=== PATIENT | female | born 1945 | race Caucasian/White ===

== ENCOUNTER 2018-01-23 05:04 | Inpatient (IN) ==
[2018-01-23] MEDS ORDERED: Metoprolol Tartrate 25 MG Tablet PO ONE (05:42)
[2018-01-23] MEDS ORDERED: Chlorhexidine Gluconate 2% 1 Pack (2 Cloths) TOPICAL ONE (05:42)
[2018-01-23] MEDS ORDERED: Chlorhexidine 4% Topical 120 APPLIC/120 ML Bottle TOPICAL SCH (05:45)
[2018-01-23] MEDS ORDERED: ceFAZolin 2 GM Premix Inj 2 GM/50 ML PIGGYBACK IV.SIG SCH (06:00)
[2018-01-23] MEDS ORDERED: Sodium Chlor 0.9% Inj 500 ML IV.SIG SCH (06:00)
[2018-01-23] MEDS ORDERED: Tranexamic Acid Inj 840 MG in Sodium Chlor 0.9% Inj 100 ML IV.SIG SCH ×2 (06:00→08:35)
[2018-01-23] MEDS ORDERED: Propofol Inj 500 MG/50 ML Vial ONE (06:20)
[2018-01-23] MEDS ORDERED: Sodium Chlor 0.9% Inj 40 ML, Bupivacaine Liposo PF 1.3% Inj 20 ML P-ARTICULR SCH ×2 (07:00)
[2018-01-23] MEDS ORDERED: Bisacodyl 10 MG Supp RECTAL PRN (07:04)
[2018-01-23] MEDS ORDERED: Aluminum/Magnesium/Simethacone Susp 30 ML UDC PO PRN (07:04)
[2018-01-23] MEDS ORDERED: Morphine Inj 4 MG/ML Vial IV.PUSH PRN (07:04)
[2018-01-23] MEDS ORDERED: Tranexamic Acid Inj 0 MG in Sodium Chlor 0.9% Inj 100 ML IV.SIG ONE (07:04)
[2018-01-23] MEDS ORDERED: Acetaminophen 325 MG Tablet PO PRN (07:04)
[2018-01-23] MEDS ORDERED: Post-op Orders (for Pharmacy) OTHER STA (07:04)
[2018-01-23] MEDS ORDERED: Pantoprazole Sodium 20 MG DR Tablet PO PRN (08:30)
[2018-01-23] MEDS ORDERED: [UNRECOGNIZED DRUG - OTHER] PO SCH (09:00)
[2018-01-23] MEDS ORDERED: Non-Formulary Drug (Omega 3-Dha-Epa-Fish Oil [Fish Oil] 1,200 MG) PO SCH (09:00)
--- NOTE | 2018-01-23 09:35 | P.OP ---
- Preoperative Diagnosis (1) Primary osteoarthritis of right hip - Postoperative Diagnosis (1) Primary osteoarthritis of right hip Date of procedure: 01/23/18 Procedure: Right total hip arthroplasty using Nabeel prosthesis Anesthesia: GETA, local (Exparel) Surgeon: Popeye Jung MD Records Analysis Manager: ESTIVEN Prather Estimated blood loss (mL): 400 Pathology: none sent Operation and Findings: Indications and Findings: This 72-year-old woman has had long-standing arthritis in her right hip which has been nonresponsive to conservative, nonoperative care as detailed in the history and physical including anti- inflammatory agents, analgesics, intra-articular corticosteroids, physical therapy and ambulatory aids. This has been progressively worsening over the past 10 months. She has difficulty entering and exiting the vehicle, ascending and descending stairs and standing from a seated position. Physical findings showed limited range of motion in the right hip with tenderness on motion. X- rays showed severe osteoarthritis with loss of articular cartilage to bone-on- bone, subchondral sclerosis and osteophytes. Operative findings: There was severe osteoarthritis in the right hip with loss of articular cartilage to [id number], subchondral sclerosis and osteophytes. Implants: The acetabular component was a 48 mm external diameter Trident 2 with a 36 mm inner diameter 0 degree X3 polyethylene liner. The femoral component was an Accolade 2 size 1 x 132 degrees. The femoral head was 36 mm outer diameter Biolox Delta with 2.5 mm offset. The patient was brought to the clean air operating suite and a general endotracheal anesthetic was administered after an attempt at a spinal. The patient was positioned into a lateral position with the operative hip up on a Biomet lateral positioner. The hip and lower extremity were prepped with alcohol, Hibiclens and ChloraPrep and draped in the usual manner with the hip draped free. Patient received prophylactic antibiotics preoperatively. The patient also received tranexamic acid preoperatively. An appropriate timeout procedure was carried out. An incision was made from the midportion of the greater trochanter proximally and posteriorly paralleling the fibers of the gluteus basilia. The incision was deepened through subcutaneous tissues down to the fascia ron and gluteus fascia. The gluteus fascia was then split longitudinally in line with its fibers up to the upper portion of the fascia ron. With wound towels in place, the Charnley retractor was inserted. The sciatic nerve was identified and protected throughout the procedure. Dissection was then carried down to the interval between the gluteus minimus and the piriformis. A retractor was inserted. The piriformis and obturator conjoined tendon was released from the greater trochanter and reflected off the capsule. A capsulotomy was made longitudinally along the femoral neck to the base of the femoral neck and then curved distally along the posterior aspect of the greater trochanter. The hip was internally rotated. Further release of the external rotators was carried out exposing the hip. The hip was dislocated. The femoral neck was transected at the appropriate level using the oscillating saw placement of appropriate retractors. The femoral head was removed. Preparation of the femur was initiated with a box osteotome followed by a curet to identify the medullary canal. Broaching was then initiated with the size 0 broach and went in 1 size increments up to size 1. The broach handle was removed. The femoral neck was then trimmed with a calcar planar. Attention was then directed to the acetabulum. Soft tissues were debrided from the acetabulum. Retractors were placed about the acetabulum. Reaming was then initiated with the 43 millimeter reamer and went in 1-2 mm increments up to the 48 millimeter diameter reamer. A trial reduction with the 48 millimeter trial prosthesis was carried out. When this was deemed to be appropriate, the trial prosthesis was removed. The acetabulum was irrigated and cleaned. The actual prosthesis as noted above was impacted into place and seated appropriately. Drill holes were made and sounded. Appropriate sized screws were inserted to stabilize the acetabulum further. The liner as noted above was inserted into the acetabular shell and impacted into place. Osteophytes were trimmed from the acetabulum. Local anesthetic was administered throughout the area of the acetabulum and anterior aspect of the femur. The trial neck was placed on the broach for the above-noted prosthesis. The femoral head trial was placed onto the femoral neck . A trial reduction was carried out. Adjustment was made as needed. The stability, leg length and motion were excellent. There was no pistoning. The trial prosthesis was removed. The broach was removed. The femoral component was impacted into the medullary canal of the femur after irrigation and suctioning. When this was appropriately seated a trial reduction was again carried out with the trial prosthesis. There was no pistoning. The leg length was appropriate. The stability and motion were excellent. The trial prosthesis was then removed. After cleaning and drying the trunion of the femoral component, the above-noted femoral head was impacted onto the trunnion. The hip was reduced. The stability and mobility were again checked along with leg lengths as noted above. The hip was positioned appropriately and closure commenced after the remainder of the local anesthetic was injected throughout the hip. The external rotators and capsule were repaired with #1 Vicryl interrupted transosseous sutures with a Krakw technique to reattach the external rotators and capsule to the posterior aspect of the greater trochanter. The capsule itself on the superior aspect was closed with #1 Vicryl interrupted [id number] sutures. The sciatic nerve was inspected. The fascia ron and gluteus fascia were repaired with #1 Vicryl interrupted [id number] sutures. The subcutaneous tissues were closed with 2-0 Vicryl interrupted simple sutures with buried knots. The skin was closed with a continuous subcuticular closure of 4-0 Monocryl. The wound was then approximated with Dermabond Prineo. A silver impregnated dressing was applied to the hip. A knee immobilizer was applied to the leg. The patient was transferred from the operating room to the recovery room in satisfactory condition having tolerated the procedure well. Counts are correct. Specimens: None. Estimated blood loss: 400
--- NOTE | 2018-01-23 09:37 | P.DCO ---
- Physical Therapy Physical Therapy: Gait training Hip: Total hip, Protocol: Right, Posterior hip precautions, Progress to weight bearing Canvas Knee Splint: When in bed with 2 pillows between thighs (For 2 months) Right Lower Extremity Weight Bearing: Weight bearing as tolerated Right Lower Extremity Range of Motion: Active ROM - Nursing Nursing: Dressing changes Dressing changes: Daily dressing change, Coverderm/Primapore Additional instructions: Do not remove Dermabond Prineo (the tape that is directly on the wound). Leave the Optifoam dressing in place for 7 days. After this, daily dressing changes will be done taking care to avoid injuring or removing the Dermabond Prineo. - Certification Need for Home Health services: I have seen patient Caterina Parrish on 01/23/18. My clinical findings support the need for the requested home health care services because: Need for Home Health Services: Deconditioned with increased weakness, Limited ability to care for self, High risk of falls Homebound Certification: I certify that my clinical findings support that this patient is homebound because: Homebound Certification: Post-op weakness, Unsteady gait/balance, Unsafe to leave home unassisted
[2018-01-23] MEDS ORDERED: fentaNYL Citrate Inj 100 MCG/2 ML Ampul ONE (09:57)
[2018-01-23] MEDS ORDERED: *morphine SULFATE 4 MG/ML PERIprocedure ONLY ONE (10:02)
[2018-01-23] MEDS ORDERED: *Meperidine Inj 25 MG/ML Vial PERIprocedural Use ONLY ONE (10:15)
--- NOTE | 2018-01-23 11:11 | XR ---
EXAM DATE: 01/23/2018 11:08 AM EST AGE/SEX: 72 years / Female INDICATIONS: Post op right hip. CLINICAL DATA: This is the patient's initial encounter. Patient reports that signs and symptoms have been present for 1 day and indicates a pain score of Nonresponsive. MEDICAL/SURGICAL HISTORY: None. None. COMPARISON: POI, XR HIP AP AND LAT, RIGHT, 04/20/2017. . FINDINGS: Status post placement of a right hip prosthesis. The bony structures are grossly intact. There is goo d alignment and position of the right hip prosthesis. CONCLUSION: Good alignment and position on this postoperative study. Electronically signed by: Shay Romo MD 01/23/2018 11:10 AM EST
[2018-01-23] MEDS ORDERED: VITAMIN B COMPLEX PO SCH (12:00)
[2018-01-23] MEDS: Ketorolac Inj 30 MG/ML (IVP) Vial IV.PUSH SCH ×3 (12:13→22:01)
[2018-01-23] MEDS ORDERED: Dimethicone/Oxybenzone-Padimate Lip Balm 4.25 GM Tube TOPICAL ONE (12:18)
[2018-01-23] MEDS: Multivitamin/Minerals Therapeutic Tablet PO SCH (12:23)
[2018-01-23] MEDS: Ascorbic Acid 500 MG Tablet PO SCH (12:23)
[2018-01-23] MEDS: Senna/Docusate Sodium 8.6/50 MG Tablet PO SCH ×2 (13:51→21:23)
[2018-01-23] MEDS: ceFAZolin 1 GM Premix Inj 1 GM/50 ML IV.SIG SCH ×2 (13:58→18:50)
--- NOTE | 2018-01-23 14:50 | P.CONIM ---
History of Present Illness Service: [facility] Consult date: 01/23/18 Reason for Consult: medical management GERD, OA Primary Care Provider: Aissatou Eldridge Chief Complaint: s/p elective right total hip arthroplasty History of Present Illness: Patient is a very pleasant year old female with a past medical history significant for osteoarthritis and GERD. Patient has a long standing history of arthritis in her right hip that has not responded to conservative, non operative care. She presented to the hospital today for an elective right total hip arthroplasty. Patient has had progressively worsening right hip pain over the past months that eventually became functionally disabling despite conservative treatment. Patient was seen post operatively in the PACU by the hospitalist team for management of patients chronic conditions including chronic pain secondary to osteoarthritis and GERD. Patient was seen while resting on a stretcher. She reports no pain to right hip while at rest but states she used the bedpan earlier and experienced moderate to severe pain with movement. Patient's right lower extremity is noted to be in an immobilizer. She is able to wiggle her toes and the sensation is intact. Patient denies nausea or vomiting. She is hemodynamically stable. Her respirations are non labored. She denies heartburn at present time. No reports of chest pain or shortness of breath. No acute distress was noted. Patients lab work completed 01/09/18 was reviewed at bedside and noted to be unremarkable. The hospitalist team will follow along for continued management of patients chronic medical conditions. Review of Systems ROS Unobtainable: other (except as documented all other systems reviewed and negative) FOR[facility]LY [facility] Social History Social History Substance History: No History of Abuse Second Hand Smoke Exposure: No Smoking Status: Never smoker How Often Do You Have a Drink Containing Alcohol: 2 to 4 times a month Recent Travel in [facility] within the Last 8 Weeks: No Recent Out of Country Travel within the Last 8 Weeks: No Medications and Allergies Allergies Allergy/AdvReac Type Severity Reaction Status Date / Time butalbital Allergy Mild NAUSEA, Verified 01/09/18 09:02 HEADACHE caffeine Allergy Mild NAUSEA, Verified 01/09/18 09:02 HEADACHE clarithromycin Allergy Mild NAUSEA, Verified 01/09/18 09:03 HEADACHE diclofenac Allergy Mild NAUSEA, Verified 01/09/18 09:02 HEADACHE rofecoxib [From Vioxx] Allergy Mild Headache Verified 01/09/18 09:02 Sulfa (Sulfonamide Allergy Mild NAUSEA, Verified 01/09/18 09:02 Antibiotics) HEADACHE sulfamethoxazole Allergy Mild NAUSEA, Verified 01/09/18 09:03 HEADACHE trimethoprim Allergy Mild NAUSEA, Verified 01/09/18 09:03 HEADACHE bacitracin AdvReac Headache Verified 01/23/18 05:55 Home Medications Medication Instructions Recorded Confirmed Type ascorbic acid (vitamin C) [Vitamin 2,000 mg PO DAILY 01/09/18 01/23/18 History C] cholecalciferol (vitamin D3) 5,000 unit PO DAILY 01/09/18 01/23/18 History [Vitamin D3] conjugated estrogens [Premarin] 0.3 mg PO DAILY 01/09/18 01/23/18 History cyanocobalamin (vitamin B-12) 1,000 mcg PO DAILY 01/09/18 01/23/18 History [Vitamin B-12] flaxseed oil-omega 3,6,9 1 cap PO DAILY 01/09/18 01/23/18 History zczuvyoerqiz-sew-qaoc-FA-vit K 1 tab PO DAILY 01/09/18 01/23/18 History [Adults Multivitamin] nabumetone 500 mg PO BID 01/09/18 01/23/18 History omega 2-aby-xgu-fish oil [Fish Oil] 1,200 mg PO DAILY 01/09/18 01/23/18 History omeprazole 20 mg PO DAILY PRN 01/09/18 01/23/18 History vitamin B complex 1 tab PO DAILY 01/09/18 01/23/18 History vitamin E 800 unit PO DAILY 01/09/18 01/23/18 History Active Medications: Active Medications Acetaminophen (Tylenol) 650 mg PO Q6H PRN PRN Reason: Pain Less Than 3 On Scale Hydrocodone Bitart/Acetaminophen ([place] 7.5/325) 1 tab PO Q4H PRN PRN Reason: PAIN SCALE 4 TO 6 MODERATE Last Admin: 01/23/18 14:05 Dose: 1 tab Hydrocodone Bitart/Acetaminophen ([place] 7.5/325) 2 tab PO Q6H PRN PRN Reason: PAIN SCALE 7 TO 10 SEVERE Al Hydrox/Mg Hydrox/Simethicone (Mag-Al Plus Susp Liq) 30 ml PO Q6H PRN PRN Reason: INDIGESTION Al Hydroxide/Mg Hydroxide (Milk Of Magnesia Liq) 30 ml PO BID PRN PRN Reason: Mild Constipation Ascorbic Acid (Vitamin C) 2,000 mg PO DAILY [facility] Last Admin: 01/23/18 12:23 Dose: 2,000 mg Aspirin (Aspirin Chew) 81 mg PO BID [facility] Last Admin: 01/23/18 12:14 Dose: 81 mg Bisacodyl (Dulcolax Supp) 10 mg RECTAL DAILY PRN PRN Reason: SEVERE CONSITIPATION Chlorhexidine Gluconate (Hibiclens 4% Topical) 1 applicatio TOPICAL ONCE [facility] Stop: 01/27/18 05:44 Last Admin: 01/23/18 05:30 Dose: 1 applicatio Sodium Chloride 40 ml/ (Bupivacaine Liposome 20 ml) 0 ml P-ARTICULR ONCE [facility] Stop: 01/23/18 15:00 Last Admin: 01/23/18 07:56 Dose: 60 bag Cyanocobalamin (Vitamin B12) 1,000 mcg PO DAILY [facility] Last Admin: 01/23/18 13:52 Dose: 1,000 mcg Diphenhydramine HCl (Benadryl) 25 mg PO Q6H PRN PRN Reason: ITCHING Estrogens Conjugated (Premarin) 0.3 mg PO DAILY [facility] Last Admin: 01/23/18 12:23 Dose: 0.3 mg Cefazolin Sodium/Dextrose (Ancef 2 Gm Premix Inj) 2 gm in 50 mls @ 100 mls/hr IV.SIG COATER SLATE [facility] Stop: 01/27/18 05:59 Last Infusion: 01/23/18 07:56 Dose: Infused Tranexamic Acid 840 mg/ Sodium (Chloride) 108.4 mls @ 200 mls/hr IV.SIG ONCE [facility] Stop: 01/23/18 15:00 Last Admin: 01/23/18 10:18 Dose: 200 mls/hr Sodium Chloride (Ns Inj) 500 mls @ 30 mls/hr IV.SIG .Q10H [facility] Last Admin: 01/23/18 08:07 Dose: Not Given Lactated Ringer's (Lr 1000 Ml Inj) 1,000 mls @ 30 mls/hr IV.SIG .Q24H [facility] Stop: 01/24/18 05:44 Last Admin: 01/23/18 05:45 Dose: 30 mls/hr Cefazolin Sodium/Dextrose (Ancef 1 Gm Premix Inj) 1 gm in 50 mls @ 100 mls/hr IV.SIG Q6H [facility] Stop: 01/24/18 01:29 Last Admin: 01/23/18 13:58 Dose: 100 mls/hr Lactated Ringer's (Lr 1000 Ml Inj) 1,000 mls @ 80 mls/hr IV.CONT .[id number] [facility] Last Admin: 01/23/18 10:18 Dose: 80 mls/hr Ketorolac Tromethamine (Toradol Inj) 15 mg IV.PUSH Q6H [facility] Stop: 01/25/18 05:01 Last Admin: 01/23/18 12:13 Dose: 15 mg Lactulose (Lactulose Liq) 30 ml PO DAILY PRN PRN Reason: SEVERE CONSITIPATION Miscellaneous Information (Misc Nursing Information) 0 each OTHER UNSCH PRN PRN Reason: SEE LABEL COMMENTS Stop: 01/24/18 09:59 Morphine Sulfate (Morphine Inj) 2 mg IV.PUSH Q3H PRN PRN Reason: BREAKTHROUGH PAIN Multivitamins/Minerals (Theragran-M) 1 tab PO DAILY [facility] Last Admin: 01/23/18 12:23 Dose: 1 tab Ondansetron HCl (Zofran Odt) 4 mg PO Q6H PRN PRN Reason: NAUSEA OR VOMITING Pantoprazole Sodium (Protonix) 20 mg PO DAILY PRN PRN Reason: GERD;HEARTBURN Patient Own Medication: Vitamin B Complex Tablet 0 each PO DAILY [facility] Senna/Docusate Sodium (Jacqueline-Colace) 1 tab PO BID [facility] Last Admin: 01/23/18 13:51 Dose: Not Given Sennosides (Senokot) 17.2 mg PO BID PRN PRN Reason: Moderate Constipation Sodium Chloride (Ns Flush) 2 ml IV.FLUSH PRN PRN PRN Reason: FLUSH AFTER USING IV ACCESS Sodium Chloride (Ns Flush) 2 ml IV.FLUSH BID [facility] Last Admin: 01/23/18 13:51 Dose: Not Given Vitamin D (Vitamin D3) 5,000 unit PO DAILY [facility] Last Admin: 01/23/18 12:24 Dose: 5,000 unit Vitamin E (Vitamin E) 800 unit PO DAILY [facility] Last Admin: 01/23/18 12:24 Dose: 800 unit Zolpidem Tartrate (Ambien) 5 mg PO HS PRN PRN Reason: INSOMNIA Physical Exam Vital signs: Last Vital Signs Temp 97.3 F L 01/23/18 12:00 Pulse 76 01/23/18 13:30 Resp 15 01/23/18 13:30 BP 115/77 01/23/18 13:30 Pulse Ox 99 01/23/18 12:30 Intake & Output 01/21/18 01/22/18 01/23/18 01/24/18 06:59 06:59 06:59 06:59 Intake Total 1000.4 / 1000.4 Output Total 400 / 400 Balance 600.4 / 600.4 Weight 84.1 kg Constitutional no acute distress and cooperative Routine HEENT Exam Head: Present normocephalic and atraumatic Eye: Present EOMI, PERRL and normal accommodation ENT: Present mucous membranes moist Routine Neck Exam Present supple and full ROM; Absent JVD Routine Chest/Breast/Axilla Exam Chest wall: Absent tenderness Routine Respiratory Exam Present CTA bilaterally; Absent accessory muscle use and wheezes Routine Cardiovascular Exam Present RRR, S1 and S2; Absent murmur Routine Abdominal Exam Present soft; Absent tenderness and distended Routine Extremities Exam Present pulses intact; Absent cyanosis and edema Detailed Lower Extremity Exam Hip: right: wound hip (covered with dressing) and right: decreased ROM (s/p right hip arthroplasty) Routine Skin Exam Present intact Routine Neurological Exam Present alert, oriented X3 and CN II-XII intact Results Labs Labs: Patients lab work including CBC, BMP and coagulation studies from were reviewed by me at the bedside and noted to be unremarkable. Imaging Impressions Hip X-Ray 01/23/18 07:03 CONCLUSION: Good alignment and position on this postoperative study. ABG Impressions Hip X-Ray 01/23/18 07:03 CONCLUSION: Good alignment and position on this postoperative study. Assessment and Plan (1) Status post total replacement of right hip: Code(s): Z96.641 - Presence of right artificial hip joint Status: Acute Plan Patient is a very pleasant 72 year old female with a past medical history for osteoarthritis, GERD, esophageal dilation and melanoma status post removal of right ankle. She presented today for an elective right total hip arthroplasty that has been non responsive to conservative treatment. Right hip osteoarthritis status post right hip total arthroplasty 01/23/18 -primary management per Ortho Dr Jung -DVT ppx as ordered per primary team, ASA 81 mg PO BID -pain mgmt as ordered per Ortho -PT eval/treat -IV fluids, post op abx as ordered per Ortho GERD, chronic -stable -patient states she does not PPI right now and only needs it when she is symptomatic -monitor closely Hx of esophageal dilatation -chronic and stable -no difficulty swallowing MDM: self Code: Full GI ppx: PO intake DVT ppx: ASA 81 mg PO BID Discussed Condition With: RN, patient
[2018-01-23] MEDS ORDERED: *Ondansetron Inj 4 MG/2 ML Vial PERIprocedural Use ONLY ONE (15:38)
[2018-01-23] MEDS ORDERED: Zolpidem Tartrate 5 MG Tablet PO PRN (21:00)
[2018-01-24] MEDS: ceFAZolin 1 GM Premix Inj 1 GM/50 ML IV.SIG SCH (01:01)
[2018-01-24 04:22] LABS: Hematocrit 35.7 % (35.0-46.0)
[2018-01-24] MEDS: Ketorolac Inj 30 MG/ML (IVP) Vial IV.PUSH SCH ×4 (04:56→22:42)
--- NOTE | 2018-01-24 06:08 | P.PNOP ---
Subjective Interval history: Postop day #1 She is doing relatively well. She has been up to the bedside commode several times since surgery and to the bathroom at least once with assistance. There is not a great deal of pain. Physical therapy reports that the ambulation distance was 4 steps. Physical Exam Vital signs: Vital Signs 01/23/18 09:53 01/23/18 10:00 01/23/18 10:06 Temperature 97.5 F L Pulse Rate 83 85 Respiratory Rate 12 16 12 Blood Pressure 149/67 H 142/66 H Pulse Oximetry 100 100 01/23/18 10:15 01/23/18 10:30 01/23/18 10:44 Temperature 96 F L Pulse Rate 76 64 Respiratory Rate 17 12 Blood Pressure 144/65 H 163/71 H Pulse Oximetry 100 98 01/23/18 10:45 01/23/18 11:00 01/23/18 11:30 Temperature 96 F L Pulse Rate 85 75 67 Respiratory Rate 12 16 13 Blood Pressure 127/58 L 129/60 132/56 L Pulse Oximetry 98 99 98 01/23/18 12:00 01/23/18 12:30 01/23/18 13:30 Temperature 97.3 F L Pulse Rate 88 62 76 Respiratory Rate 24 14 15 Blood Pressure 131/60 146/62 H 115/77 Pulse Oximetry 99 99 01/23/18 14:50 01/23/18 15:00 01/23/18 16:00 Temperature 97.6 F Pulse Rate 68 74 Respiratory Rate 14 17 15 Blood Pressure 122/58 L 128/58 L Pulse Oximetry 95 99 01/23/18 19:10 01/24/18 00:15 01/24/18 04:20 Temperature 98.0 F 97.6 F 97.8 F Pulse Rate 68 71 67 Respiratory Rate 18 17 17 Blood Pressure 117/57 L 109/54 L 126/61 Pulse Oximetry 96 96 97 Intake & Output 01/23/18 01/23/18 01/24/18 06:59 18:59 06:59 Intake Total 1338.8 / 1338.8 1100 / 1100 Output Total 600 / 600 300 / 300 Balance 738.8 / 738.8 800 / 800 Weight 84.1 kg 84.1 kg Intake: IV 316.8 / 316.8 1100 / 1100 LR 1000 mL Inj 1,000 ML @ 80 1000 / 1000 mls/hr IV.CONT .[id number] [facility] Rx# :[id number] Cyklokapron Inj 840 MG In NS 216.8 / 216.8 Inj 100 ML @ 200 mls/hr IV.SIG ONCE [facility] Rx#:[id number] Ancef 1 GM Premix Inj 1 gm In 50 / 50 100 / 100 50 ml @ 100 mls/hr IV.SIG Q6H [facility] Rx#:[id number] Ancef 2 GM Premix Inj 2 gm In 50 / 50 50 ml @ 100 mls/hr IV.SIG LOCATION ANALYST [facility] Rx#:[id number] Oral 180 / 180 Anesthesia Amount 842 / 842 Output: Urine 200 / 200 300 / 300 Estimated Blood Loss 400 / 400 Other: # Voids 1 Date of Last Bowel Movement 01/23/18 Weight On Admission 84.1 kg Narrative: She is resting comfortably, supine in bed. The dressing is dry and intact. Her neurovascular status is intact. Results - Labs CBC & Chem 7: 01/24/18 04:03 Laboratory Results - last 24 hr 01/23/18 01/24/18 05:50 04:03 Hgb 12.0 Hct 35.7 Blood Type O Positive Blood Type Recheck Required Antibody Screen Negative - Imaging Impressions Hip X-Ray 01/23/18 07:03 CONCLUSION: Good alignment and position on this postoperative study. - Procedures Right total hip arthroplasty using [place] prosthesis on 01/23/2018. Assessment and Plan - Problem List (1) Status post total replacement of right hip Code(s): Z96.641 - Presence of right artificial hip joint Status: Acute Onset Date: ~01/23/18 - Assessment and Plan Condition: Good. Orthopedically stable. DVT prophylaxis: TEDs, aspirin, sequentials. Discharge plans: Home with home health care. An appointment was scheduled through the office. Prescriptions: [place] 7.5/325; Patient is having significant pain caused by a total hip arthroplasty which will last more than 3 days. Trial of Tylenol has not helped. I believe that it is medically necessary to treat patients pain because it is affecting patients ability to participate in postoperative rehabilitation and perform activities of daily living in a comfortable and efficient manner. I have checked the [facility] database prior to completing the prescription.
[2018-01-24] MEDS: Ascorbic Acid 500 MG Tablet PO SCH (08:59)
[2018-01-24] MEDS: Senna/Docusate Sodium 8.6/50 MG Tablet PO SCH ×2 (08:59→21:17)
[2018-01-24] MEDS: Multivitamin/Minerals Therapeutic Tablet PO SCH (08:59)
--- NOTE | 2018-01-24 17:27 | P.PNIM ---
Subjective Interval history: Follow up right hip OA s/p right total hip arthroplasty, GERD Patient is sitting up in a chair in her room. Her son is at the bedside. She states her right hip pain is currently controlled. Awaiting PT evaluation. No shortness of breath, calf pain, nausea or vomiting. Tolerating diet. Physical Exam Vital signs: Last Vital Signs Temp 98 F 01/24/18 08:00 Pulse 96 H 01/24/18 08:00 Resp 18 01/24/18 08:00 BP 139/68 01/24/18 08:00 Pulse Ox 99 01/24/18 08:00 Intake & Output 01/22/18 01/23/18 01/24/18 01/25/18 06:59 06:59 06:59 06:59 Intake Total 3038.8 / 3038.8 Output Total 900 / 900 Balance 2138.8 / 2138.8 Weight 84.1 kg 84.1 kg Narrative: GENERAL: no acute distress, well developed, well nourished SKIN: warm and dry. HEAD: normocephalic, atraumatic EYES: No scleral icterus. No injection or drainage. NECK: Supple, trachea midline. No JVD or lymphadenopathy. CARDIOVASCULAR: Regular rate and rhythm without murmurs, gallops, or rubs. RESPIRATORY: Breath sounds equal bilaterally. No accessory muscle use. GASTROINTESTINAL: Abdomen soft, non-tender, nondistended. MUSCULOSKELETAL: No cyanosis. Decreased ROM right lower extremity s/p hip arthroplasty. Results Labs CBC & Chem 7: 01/24/18 04:03 Procedures Procedures: Right total hip arthroplasty using [place]abe[place] prosthesis on 2017. 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 She presented today for an elective right total hip arthroplasty that has been non responsive to conservative treatment. Right hip osteoarthritis status post right hip total arthroplasty 01/23/18 - evaluated 01/24/18, stable -primary management per Ortho Dr Jung -DVT ppx as ordered per primary team, ASA 81 mg PO BID -pain mgmt as ordered per Ortho -PT eval/treat -IV fluids, post op abx as ordered per Ortho GERD, chronic - evaluated 01/24/18, stable -patient states she does not PPI right now and only needs it when she is symptomatic -monitor closely Hx of esophageal dilatation -chronic and stable -no difficulty swallowing MDM: self Code: Full GI ppx: PO intake DVT ppx: ASA 81 mg PO BID, SCD's Progress Note: Quality VTE Deep Vein Thrombosis/Pulmonary Embolism Present on Admission: No
[2018-01-25 04:58] LABS: Hematocrit 33.7 % (35.0-46.0); Hemoglobin 11.4 gm/dL (11.6-15.3)
[2018-01-25] MEDS: Ketorolac Inj 30 MG/ML (IVP) Vial IV.PUSH SCH (05:39)
--- NOTE | 2018-01-25 07:38 | P.PNOP ---
Subjective Interval history: Postop day #2 She is doing better today than she was yesterday. She is less pain. Physical therapy reports that the ambulation distance was 10 feet in the morning and 60 feet in the afternoon. Physical Exam Vital signs: Vital Signs 01/24/18 08:00 01/24/18 16:00 01/24/18 20:46 Temperature 98 F 98.3 F 97.8 F Pulse Rate 96 H 74 70 Respiratory Rate 18 16 17 Blood Pressure 139/68 118/58 L 100/67 Pulse Oximetry 99 99 93 L 01/25/18 00:00 01/25/18 04:45 Temperature 97.6 F 98 F Pulse Rate 70 85 Respiratory Rate 16 16 Blood Pressure 116/56 L 106/73 Pulse Oximetry 92 L 97 Intake & Output 01/24/18 01/25/18 01/25/18 18:59 06:59 18:59 Intake Total 600 / 600 Output Total 0 / 0 Balance 600 / 600 Weight 91.2 kg Intake: IV 0 / 0 Oral 600 / 600 Output: Stool 0 / 0 Other: # Voids 2 Date of Last Bowel Movement 01/23/18 01/23/18 Narrative: She is resting comfortably, supine in bed. The dressing is dry and intact. There is no erythema. There is no sign of infection. The neurovascular status is intact. Results - Labs CBC & Chem 7: 01/25/18 04:26 Laboratory Results - last 24 hr 01/25/18 04:26 Hgb 11.4 L Hct 33.7 L - Imaging Hip X-Ray 01/23/18 07:03 CONCLUSION: Good alignment and position on this postoperative study. - Procedures Right total hip arthroplasty using Nabeel prosthesis on 01/23/2018. Assessment and Plan - Ortho Post Op Day # 2 - Problem List (1) Status post total replacement of right hip Code(s): Z96.641 - Presence of right artificial hip joint Status: Acute Onset Date: ~01/23/18 - Assessment and Plan Condition: Good. Orthopedically stable. DVT prophylaxis: TEDs, aspirin, sequentials. Discharge plans: Home with home health care. An appointment was scheduled through the office. Prescriptions: [place] 7.5/325; Patient is having significant pain caused by a total hip arthroplasty which will last more than 3 days. Trial of Tylenol has not helped. I believe that it is medically necessary to treat patients pain because it is affecting patients ability to participate in postoperative rehabilitation and perform activities of daily living in a comfortable and efficient manner. I have checked the [facility] database prior to completing the prescription.
--- NOTE | 2018-01-25 08:12 | P.DS ---
Date of admission: 01/23/18 05:04 Primary care physician: Aissatou Eldridge Attending physician on discharge: Popeye Jung Anticipated date of discharge: 01/25/18 Brief History from admission: This 72-year-old woman has had long-standing arthritis in her right hip unresponsive to conservative measures including anti-inflammatory agents, analgesics, pivoting modification and the use of ambulatory aids. Physical findings showed limitation of motion in the right hip with an antalgic gait and tenderness on motion. Radiographic findings showed loss of articular cartilage to [id number], subchondral sclerosis and osteophytes. DS: Diagnosis - Discharge Diagnosis (1) Status post total replacement of right hip Status: Acute Diagnosis: Principal (2) Primary osteoarthritis of right hip Status: Chronic Diagnosis: Principal DS: Medications - Discharge Medications Prescriptions: hydrocodone-acetaminophen 1 tab PO Q4H PRN 7 Days #42 tab PRN Reason: Pain, Severe DS: Summary Hospital Course: The patient was admitted as noted above. The above noted operative procedure was carried out that day. Preoperatively prophylactic antibiotics were administered Ancef according to protocol. These were continued postoperatively. The patient also received tranexamic acid to help with hemostasis according to protocol. In the postanesthesia care unit mechanical methods of DVT prophylaxis in the form of PHAM stockings and sequentials were initiated. Physical therapy was initiated on the day of surgery. On postoperative day #1 physical therapy continued. DVT prophylaxis with aspirin was initiated at this time. The patient continued physical therapy throughout the hospitalization. The distance walked and range of motion improved throughout the hospitalization. The patient was discharged on postoperative day 2 with the disposition being to home with home health care. An appointment for follow-up was made prior to admission. - Time Spent with Patient Total time spent providing and/or coordinating discharge services: Less than 30 minutes - Quality: VTE Deep Vein Thrombosis/Pulmonary Embolism Present on Admission: No Exam Vital signs: Vital Signs 01/24/18 16:00 01/24/18 20:46 01/25/18 00:00 Temperature 98.3 F 97.8 F 97.6 F Pulse Rate 74 70 70 Respiratory Rate 16 17 16 Blood Pressure 118/58 L 100/67 116/56 L Pulse Oximetry 99 93 L 92 L 01/25/18 04:45 Temperature 98 F Pulse Rate 85 Respiratory Rate 16 Blood Pressure 106/73 Pulse Oximetry 97 Intake & Output 12/06/0801/25/18 01/25/18 18:59 06:59 18:59 Intake Total 600 / 600 Output Total 0 / 0 Balance 600 / 600 Weight 91.2 kg Intake: IV 0 / 0 Oral 600 / 600 Output: Stool 0 / 0 Other: # Voids 2 Date of Last Bowel Movement 01/23/18 01/23/18 Narrative: She is resting comfortably, supine in bed. The dressing is dry and intact. There is no erythema. There is no sign of infection. The neurovascular status is intact. Results Procedures completed during hospitalization: Right total hip arthroplasty using [place] prosthesis on 01/23/2018. Labs on day of discharge: Labs from last 24 hours 01/25/18 04:26 Hgb 11.4 L Hct 33.7 L - Impressions ITS Impressions Hip X-Ray 01/23/18 07:03 CONCLUSION: Good alignment and position on this postoperative study. Discharge Plan - Discharge Disposition Patient Disposition: W/Home Health Service - Discharge Condition Condition: Stable - Discharge Order Discharge Orders: Discharge Order (Routine); Ordered 01/24/18 Ordered By: Popeye Jung - Discharge Details Anticipated Discharge Date: 01/24/18 - Physicians Team Primary Care Provider: Aissatou Eldridge Attending Provider: Popeye Jung Other Providers: [facility] ; Keiry Pandya MD - Rxs /Orders / Referrals /Forms Prescriptions: New aspirin 81 mg Tablet,Chewable 81 mg PO BID RF: 0 hydrocodone-acetaminophen 7.5-325 mg Tablet 1 tab PO Q4H PRN (Reason: Pain, Severe) 7 Days Qty: 42 RF: 0 Continue ascorbic acid (vitamin C) [Vitamin C] 1,000 mg Tablet 2,000 mg PO DAILY cholecalciferol (vitamin D3) [Vitamin D3] 5,000 unit Tablet 5,000 unit PO DAILY conjugated estrogens [Premarin] 0.3 mg Tablet 0.3 mg PO DAILY cyanocobalamin (vitamin B-12) [Vitamin B-12] 1,000 mcg Tablet 1,000 mcg PO DAILY flaxseed oil-omega 3,6,9 1,300 mg-845 mg -117 mg-117 mg Capsule 1 cap PO DAILY ttbuxafpnijt-[id number]-FA-vit K [Adults Multivitamin] 18 mg iron-400 mcg-25 mcg Tablet 1 tab PO DAILY nabumetone 500 mg Tablet 500 mg PO BID omega 1-vcb-hwy-fish oil [Fish Oil] 1,000 mg (120 mg-180 mg) Capsule 1,200 mg PO DAILY omeprazole 20 mg Capsule,Delayed Release(Dr/Ec) 20 mg PO DAILY PRN (Reason: gerd) vitamin B complex Tablet 1 tab PO DAILY vitamin E 400 unit Capsule 800 unit PO DAILY Referrals: Popeye Jung MD [Physician] - See Instructions Aissatou Eldridge MD [Primary Care Provider] - See Instructions - Discharge Instructions Patient Printed Instructions: Total Hip Replacement (DC)
[2018-01-25] MEDS: Ascorbic Acid 500 MG Tablet PO SCH (08:27)
[2018-01-25] MEDS: Multivitamin/Minerals Therapeutic Tablet PO SCH (08:27)
[2018-01-25] MEDS: Senna/Docusate Sodium 8.6/50 MG Tablet PO SCH (08:28)
--- NOTE | 2018-01-25 09:27 | P.PNIM ---
Subjective Interval history: Follow up right hip OA s/p right total hip arthroplasty, GERD , generalized weakness Patient is lying in bed with a cold washcloth on her forehead. She reports intermittent episodes of nausea w/o vomiting and feeling weak today. Patient denies cough, fevers or chills. Patient educated to take her pain medications with food. Hemodynamically stable. Physical Exam Vital signs: Last Vital Signs Temp 99.2 F 01/25/18 08:00 Pulse 82 01/25/18 08:00 Resp 17 01/25/18 08:00 BP 118/58 L 01/25/18 08:00 Pulse Ox 95 01/25/18 08:00 Intake & Output 01/23/18 01/24/18 01/25/18 01/26/18 06:59 06:59 06:59 06:59 Intake Total 3038.8 / 3038.8 600 / 600 Output Total 900 / 900 0 / 0 Balance 2138.8 / 2138.8 600 / 600 Weight 84.1 kg 84.1 kg 91.2 kg Narrative: GENERAL: no acute distress, well developed, well nourished SKIN: warm and dry HEAD: normocephalic, atraumatic EYES: No scleral icterus. No injection or drainage. NECK: Supple, trachea midline. No JVD or lymphadenopathy. CARDIOVASCULAR: Regular rate and rhythm without murmurs, gallops, or rubs. RESPIRATORY: Breath sounds equal bilaterally. No accessory muscle use. GASTROINTESTINAL: Abdomen soft, non-tender, nondistended. MUSCULOSKELETAL: No cyanosis. Decreased ROM RLE s/p arthroplasty. Dressing clean , dry and intact. Results Labs CBC & Chem 7: 01/25/18 04:26 Procedures Procedures: Right total hip arthroplasty using Nabeel prosthesis on 2017. Assessment and Plan Plan Patient is a very pleasant 72 year old female with a past medical history for osteoarthritis, GERD, esophageal dilation and melanoma status post removal of right ankle. She presented today for an elective right total hip arthroplasty that has been non responsive to conservative treatment. Right hip osteoarthritis status post right hip total arthroplasty 01/23/18 - evaluated 01/25/18, stable -primary management per Ortho Dr Jung -DVT ppx as ordered per primary team, ASA 81 mg PO BID -pain mgmt as ordered per Ortho -PT eval/treat Nausea w/o vomiting - evaluated 01/25/18 -educated patient to take meds with food -Zofran PRN GERD, chronic - evaluated 01/25/18, stable -patient states she does not PPI right now and only needs it when she is symptomatic -monitor closely Hx of esophageal dilatation -chronic and stable -no difficulty swallowing MDM: self Code: Full GI ppx: PO intake DVT ppx: ASA 81 mg PO BID, SCD's Patient clear from medical standpoint. Thank you kindly for this consultation. Discussed Condition With: RN, patient Discharge Planning: Home with HH and PT eval/treat Progress Note: Quality VTE Deep Vein Thrombosis/Pulmonary Embolism Present on Admission: No
== END 2018-01-25 17:44 | disposition home health service (06) ==
LOC: HSDI 05:04 → N06 16:12
PROVIDERS: ADMIT Orthopaedic Surgery; ATTEND Orthopaedic Surgery